=== PATIENT | female | born 1980 | race Two or more races ===

== ENCOUNTER 2019-03-22 19:25 | Emergency (ER) | payer MEDICAID, OTHER ==
[~2019-03-22] VITALS: Ht 162.6 cm; Wt 82.0 kg
--- NOTE | 2019-03-22 19:51 | NUR ---
Xray at bedside
[2019-03-22] MEDS ORDERED: IBUPROFEN 200 MG TABLET ONE (19:52)
[2019-03-22] MEDS ORDERED: IBUPROFEN 200 MG TABLET PO ONE (20:00)
--- NOTE | 2019-03-22 20:03 | NUR ---
Pt medicated per MAR for pain. Ice pack given. Awaiting results. Call light in reach.
[2019-03-22] MEDS ORDERED: ALPR1TAB2 PO (20:05)
--- NOTE | 2019-03-22 20:46 | NUR ---
Tech at bedside for splint.
[2019-03-22 21:05] VITALS: BP 122/87
== END 2019-03-22 21:08 | disposition home or self-care (01) ==
LOC: ED 20:15
DX: S92.351A Displaced fracture of fifth metatarsal bone, right foot, initial encounter for closed fracture (principal); W01.0XXA Fall on same level from slipping, tripping and stumbling without subsequent striking against object, initial encounter; Y93.89 Activity, other specified; Y92.830 Public park as the place of occurrence of the external cause; Y99.8 Other external cause status
CPT/HCPCS: 29515; 99283